=== PATIENT | female | born 1950 | race Caucasian/White ===

== ENCOUNTER → 2018-01-20 | Outpatient (CLI) | payer MEDICARE ==
[~2018-01-20] MED LIST: Calcium + Vita1 EACH PO; Multiple Vitam1 EAC1 PO; PRAV20 PO; Vitamin C100 M1 PO
== END | disposition home or self-care (01) ==
LOC: PLD 16:30 → LAB SHORT 16:30
DX: L82.1 Other seborrheic keratosis (principal); L81.4 Other melanin hyperpigmentation; L57.8 Other skin changes due to chronic exposure to nonionizing radiation
CPT/HCPCS: 88305

== ENCOUNTER → 2022-04-24 | Outpatient (CLI) | payer MEDICARE, OTHER ==
[2022-04-25 09:05] LABS: Stool Occult Bld Immuno 1 Negative (NEGATIVE)
== END | disposition home or self-care (01) ==
LOC: LAB SHORT 07:30 → LAB 07:30
PROVIDERS: Family Medicine
DX: Z12.11 Encounter for screening for malignant neoplasm of colon (principal)
CPT/HCPCS: G0328

== ENCOUNTER → 2023-05-08 | Outpatient (CLI) | payer MEDICARE, OTHER ==
[2023-05-08 13:14] LABS: Stool Occult Bld Immuno 1 Negative (NEGATIVE)
== END | disposition home or self-care (01) ==
LOC: LAB SHORT 10:12 → LAB 10:12
PROVIDERS: Family Medicine
DX: Z12.11 Encounter for screening for malignant neoplasm of colon (principal)
CPT/HCPCS: G0328